=== PATIENT | female | born 1995 | race American Indian/Alaskan Native ===

== ENCOUNTER 2018-12-24 16:26 | Emergency (ER) | payer SELFPAY ==
[2018-12-24 16:34] VITALS: BP 140/80
--- NOTE | 2018-12-24 16:34 | Emergency Department Report ---
Chief Complaint: Urogenital-Female Stated Complaint: STD CHECK Time Seen by Provider: 12/24/18 16:34 - HPI History of Present Illness: HERE FOR STD EVAL NO S/S MSE COMPLETED - Exam Vital Signs: Vital Signs 12/24/18 16:33 Temperature 99.3 F Pulse Rate 99 H Respiratory 18 Rate Blood Pressure 140/80 [Right] O2 Sat by Pulse 100 Oximetry MSE screening note: Focused history and physical exam performed. Due to findings the following was ordered: ED Disposition for MSE Condition: Stable
== END 2018-12-24 17:15 | disposition left against medical advice (07) ==
LOC: ED 16:26
DX: Z11.3 Encounter for screening for infections with a predominantly sexual mode of transmission (principal); Z53.21 Procedure and treatment not carried out due to patient leaving prior to being seen by health care provider